=== PATIENT | male | born 1960 | race Caucasian/White ===

== ENCOUNTER 2016-11-18 17:40 | Emergency (ER) | payer OTHER ==
[~2016-11-18 17:40] MED LIST: DILANTIN; UNABLEOBTAIN
[2016-11-18 18:01] LABS: HEMATOCRIT 38.8 % (38.0-50.0); MCH 34.9 PG (29.0-34.0); MCHC 35.1 G/DL (30.0-36.0); MCV 99.5 FL (86-99); MEAN PLAT.VOLUME 10.8 uM^3 (9.0-12.4); PLATELET COUNT 242 K/uL (156-360); RBC DIS.WIDTH-CV 12.5 % (11.8-14.6); RBC DIS.WIDTH-SD 44.4 % (39-53); WHITE BLOOD COUNT 13.7 K/uL (4.1-10.2)
[2016-11-18 18:03] LABS: BASOPHIL COUNT 0.1 K/uL (0-0.1); EOSINOPHIL (%) 1.5 % (0-5); EOSINOPHIL COUNT 0.2 K/uL (0-0.3); IMMATURE GRANULOCYTE (%) 0.3 % (0.0-0.7); IMMATURE GRANULOCYTE COUNT 0.4 K/uL; LYMPHOCYTE COUNT 6.7 K/uL (1.0-2.8); MONOCYTE (%) 7.7 % (3-12); MONOCYTE COUNT 1.1 K/uL (0-0.8); NEUTROPHIL COUNT 5.6 K/uL (1.8-6.4)
[2016-11-18 18:09] LABS: AMYLASE 36 IU/L (1-118); CHLORIDE 105 mEq/L (99-109); POTASSIUM 3.7 mEq/L (3.7-5.4); SODIUM 139 mEq/L (136-147)
[2016-11-18 18:11] LABS: GLUCOSE 94 mg/dL (70-99)
[2016-11-18 18:12] LABS: ANION GAP 12 MEQ/L (2-14)
[2016-11-18 18:14] LABS: SERUM ETHYL ALCOHOL 233 mg/dL
[2016-11-18 18:16] LABS: GFR ESTIMATE (CALCULATED) > 59 mL/min/; UREA NITROGEN (BUN) 14 mg/dL (9-23)
[2016-11-18 18:18] LABS: LIPASE 53 U/L (1.0-51.0)
== END 2016-11-18 19:43 | disposition left against medical advice (07) ==
LOC: TRA 17:40
PROVIDERS: Emergency Medicine
PROC: 0HQ1XZZ Repair Face Skin, External Approach (ICD-10-PCS; principal; 2016-11-18)
PROC: 3E0234Z Introduction of Serum, Toxoid and Vaccine into Muscle, Percutaneous Approach (ICD-10-PCS; 2016-11-18)
DX: S22.31XA Fracture of one rib, right side, initial encounter for closed fracture (principal); S22.32XA Fracture of one rib, left side, initial encounter for closed fracture; S06.0X9A Concussion with loss of consciousness of unspecified duration, initial encounter; S01.81XA Laceration without foreign body of other part of head, initial encounter; S50.311A Abrasion of right elbow, initial encounter; S50.812A Abrasion of left forearm, initial encounter; S80.211A Abrasion, right knee, initial encounter; S80.212A Abrasion, left knee, initial encounter; M25.532 Pain in left wrist; M54.2 Cervicalgia; V13.4XXA Pedal cycle driver injured in collision with car, pick-up truck or van in traffic accident, initial encounter; Y93.55 Activity, bike riding; F10.229 Alcohol dependence with intoxication, unspecified; D72.829 Elevated white blood cell count, unspecified; Y90.8 Blood alcohol level of 240 mg/100 ml or more; F17.210 Nicotine dependence, cigarettes, uncomplicated; Z23 Encounter for immunization
CPT/HCPCS: 70450; 71260; 72125; 72129; 72132; 73100; 74177; 80048; 81003; 82150; 83690; 85025; 86850; 86900; 86901; 99281; 99285; G0480; J0690

== ENCOUNTER 2016-11-25 10:47 | Emergency (ER) | payer OTHER ==
[~2016-11-25] VITALS: Ht 167.6 cm; Wt 71.0 kg
[2016-11-25 10:58] VITALS: BP 140/82
== END 2016-11-25 13:09 | disposition left against medical advice (07) ==
LOC: EXP 10:47 → EME 10:47 → EXP 13:09
DX: S01.81XD Laceration without foreign body of other part of head, subsequent encounter (principal); Z48.02 Encounter for removal of sutures
CPT/HCPCS: 99281; 99283

== ENCOUNTER → 2017-02-26 | Outpatient (CLI) | payer OTHER | END | disposition home or self-care (01) | LOC: NUC 02-18 08:30 | DX: R07.9 Chest pain, unspecified (principal); R06.02 Shortness of breath; I10 Essential (primary) hypertension | CPT/HCPCS: 78452; 93017; A9500; J2785 ==

== ENCOUNTER 2017-07-15 22:16 | Emergency (ER) | payer OTHER ==
[2017-07-15 22:35] LABS: BASOPHIL COUNT 0.1 K/uL (0-0.1); EOSINOPHIL COUNT 0.2 K/uL (0-0.3); HEMATOCRIT 38.5 % (38.0-50.0); IMMATURE GRANULOCYTE (%) 0.2 % (0.0-0.7); INSTRUMENT ABS NEUTROPHIL CT 3.2 K/uL; LYMPHOCYTE COUNT 4.2 K/uL (1.0-2.8); MCH 34.6 PG (29.0-34.0); MCV 101.6 FL (86-99); MONOCYTE (%) 7.7 % (3-12); MONOCYTE COUNT 0.6 K/uL (0-0.8); NEUTROPHIL (%) 38.6 % (45-76); NEUTROPHIL COUNT 3.2 K/uL (1.8-6.4); PLATELET COUNT 195 K/uL (156-360); RBC DIS.WIDTH-CV 13.2 % (11.8-14.6); RBC DIS.WIDTH-SD 49.1 % (39-53); RED BLOOD COUNT 3.79 M/uL (4.00-5.50); WHITE BLOOD COUNT 8.3 K/uL (4.1-10.2)
[2017-07-15 22:49] LABS: AMYLASE 38 IU/L (1-118); CHLORIDE 107 mEq/L (99-109); POTASSIUM 3.6 mEq/L (3.7-5.4); SODIUM 142 mEq/L (136-147)
[2017-07-15 22:50] LABS: GLUCOSE 86 mg/dL (70-99)
[2017-07-15 22:52] LABS: ANION GAP 15 MEQ/L (2-14)
[2017-07-15 22:53] LABS: SERUM ETHYL ALCOHOL 234 mg/dL
[2017-07-15 22:54] LABS: GFR ESTIMATE (CALCULATED) > 59 mL/min/
[2017-07-15 22:55] LABS: UREA NITROGEN (BUN) 10 mg/dL (9-23)
[2017-07-15 22:57] LABS: LIPASE 71 U/L (1.0-51.0)
[2017-07-15 23:31] LABS: ADD MIUA? YES; BILIRUBIN NEGATIVE; BLOOD MODERATE; COLOR STRAW ((YELLOW)); GLUCOSE (STRIP) NEGATIVE; KETONES NEGATIVE; LEUKOCYTES NEGATIVE; NITRITE NEGATIVE; PROTEIN (STRIP) NEGATIVE; SPECIFIC GRAVITY 1.021 (1.000-1.030); UROBILINOGEN 0.2 MG/DL (0.2-1.0)
[2017-07-15 23:34] LABS: BACTERIA NONE SEEN /HPF; EPITHELIAL CELLS RARE /HPF; MUCUS TRACE /LPF; RED BLOOD CELLS 0-5 /HPF (0-5); UCUL ADDED? NO; WHITE BLOOD CELLS 0-5 /HPF (0-5)
[2017-07-15 23:51] LABS: AMPHETAMINE NEGATIVE (500 ng/mL); BARBITURATES NEGATIVE (200 ng/mL); BENZODIAZEPINES NEGATIVE (150 ng/mL); COCAINE NEGATIVE (150 ng/mL); INTERNAL CONTROLS VALID? YES; METHADONE NEGATIVE (200 ng/mL); METHAMPHETAMINE NEGATIVE (500 ng/mL); OPIATES (MORPHINE) NEGATIVE (100 ng/mL); OXYCODONE NEGATIVE (100 ng/mL); PHENCYCLIDINE NEGATIVE (25 ng/mL); PROPOXYPHENE NEGATIVE (300 ng/mL); THC CANNABINOIDS PRESUMPTIVE POSITIVE (50 ng/mL); TRICYCLIC ANTIDEPRESSANTS NEGATIVE (300 ng/mL)
[2017-07-15 23:52] LABS: ADD MEDTOX COMMENT Y
[2017-07-16 00:19] LABS: BASE EXCESS -2.8 mEq/L (-3 to +3); BICARBONATE 23.7 mEq/L (22-26); CARBOXY HGB 5.5 % (0-5); METHEMOGLOBIN 0.8 % (0-1.5); PCO2 47 mm Hg (35-45); PO2 375 mm Hg (80-100); pH 7.31 (7.35-7.45)
[2017-07-16 00:20] LABS: COMMENTS - BLOOD GASES C+; DEVICE VENT; FI02 100 %; MECHANICAL RATE 16 resp/min; MODE ACVC; PEEP 5 CM/H20; SITE RR; TOTAL RESP RATE 16 resp/min
== END 2017-07-16 01:32 | disposition short-term general hospital (02) ==
LOC: TRA 22:16
PROVIDERS: Emergency Medicine
PROC: 0BH17EZ Insertion of Endotracheal Airway into Trachea, Via Natural or Artificial Opening (ICD-10-PCS; principal; 2017-07-15)
DX: S12.000A Unspecified displaced fracture of first cervical vertebra, initial encounter for closed fracture (principal); S12.300A Unspecified displaced fracture of fourth cervical vertebra, initial encounter for closed fracture; S12.400A Unspecified displaced fracture of fifth cervical vertebra, initial encounter for closed fracture; I46.9 Cardiac arrest, cause unspecified; S06.0X9A Concussion with loss of consciousness of unspecified duration, initial encounter; V18.4XXA Pedal cycle driver injured in noncollision transport accident in traffic accident, initial encounter; Y93.55 Activity, bike riding; Y92.828 Other wilderness area as the place of occurrence of the external cause; F10.129 Alcohol abuse with intoxication, unspecified; Y90.7 Blood alcohol level of 200-239 mg/100 ml; J96.00 Acute respiratory failure, unspecified whether with hypoxia or hypercapnia; S01.81XA Laceration without foreign body of other part of head, initial encounter
CPT/HCPCS: 36600; 70450; 70486; 71010; 71260; 72125; 72129; 72132; 74177; 80048; 81003; 82150; 82803; 83690; 84999; 85025; 86850; 86900; 86901; 87070; 87205; 94002; 99281; 99285; G0480; J0461; J2704

== ENCOUNTER → 2017-09-26 | Outpatient (CLI) | payer OTHER | END | disposition home or self-care (01) | LOC: RAD 09-16 11:00 → MRI 09-24 11:00 → RAD 09-24 11:00 → MRI 10:18 | DX: M43.22 Fusion of spine, cervical region (principal); M25.78 Osteophyte, vertebrae; M48.02 Spinal stenosis, cervical region; Z87.81 Personal history of (healed) traumatic fracture | CPT/HCPCS: 72141 ==

== ENCOUNTER 2017-10-07 20:09 | Emergency (ER) | payer OTHER ==
[~2017-10-07] VITALS: Ht 170.2 cm; Wt 66.8 kg
[2017-10-07 20:17] VITALS: BP 171/88
== END 2017-10-07 22:13 | disposition home or self-care (01) ==
LOC: EME 20:09
DX: F10.129 Alcohol abuse with intoxication, unspecified (principal); R56.9 Unspecified convulsions; F17.200 Nicotine dependence, unspecified, uncomplicated
CPT/HCPCS: 99281; 99284

== ENCOUNTER 2017-10-13 10:44 | Emergency (ER) | payer OTHER ==
[~2017-10-13] VITALS: Ht 170.2 cm; Wt 70.0 kg
[2017-10-13 14:25] LABS: BASOPHIL (%) 0.5 % (0-1); EOSINOPHIL (%) 0.9 % (0-5); EOSINOPHIL COUNT 0.1 K/uL (0-0.3); IMMATURE GRANULOCYTE (%) 0.3 % (0.0-0.7); LYMPHOCYTE COUNT 3.5 K/uL (1.0-2.8); MCH 32.6 PG (29.0-34.0); MCV 93.2 FL (86-99); MONOCYTE (%) 7.5 % (3-12); MONOCYTE COUNT 0.7 K/uL (0-0.8); NEUTROPHIL (%) 50.8 % (45-76); NEUTROPHIL COUNT 4.5 K/uL (1.8-6.4); PLATELET COUNT 255 K/uL (156-360); RBC DIS.WIDTH-CV 13.6 % (11.8-14.6); RBC DIS.WIDTH-SD 46.1 % (39-53); RED BLOOD COUNT 4.29 M/uL (4.00-5.50); WHITE BLOOD COUNT 8.8 K/uL (4.1-10.2)
[2017-10-13 14:33] LABS: ALBUMIN 4.2 g/dL (3.2-4.8); CHLORIDE 107 mEq/L (99-109); POTASSIUM 4.3 mEq/L (3.7-5.4); SODIUM 140 mEq/L (136-147)
[2017-10-13 14:36] LABS: GLUCOSE 101 mg/dL (70-99); TOTAL PROTEIN 7.7 g/dL (6.4-8.3)
[2017-10-13 14:38] LABS: TOTAL BILIRUBIN 0.4 mg/dL (0.0-1.0)
[2017-10-13 14:39] LABS: ALKALINE PHOSPHATASE 79 IU/L (3-129); CREATININE 0.7 mg/dL (0.6-1.3); GFR ESTIMATE (CALCULATED) > 59 mL/min/ (58.99-99999)
[2017-10-13 14:40] LABS: UREA NITROGEN (BUN) 8 mg/dL (9-23)
[2017-10-13 14:41] LABS: AST (GOT) 53 IU/L (2-34)
[2017-10-13 14:42] LABS: ALT (GPT) 61 IU/L (3-49)
[2017-10-13 18:24] VITALS: BP 149/81
== END 2017-10-13 18:26 | disposition home or self-care (01) ==
LOC: EME 10:44
PROVIDERS: Physician Assistant
DX: S12.090S Other displaced fracture of first cervical vertebra, sequela (principal); V18.0XXS Pedal cycle driver injured in noncollision transport accident in nontraffic accident, sequela; Z87.891 Personal history of nicotine dependence; F10.10 Alcohol abuse, uncomplicated
CPT/HCPCS: 80053; 85025; 99281; 99284

== ENCOUNTER 2017-10-14 09:08 | Emergency (ER) | payer OTHER ==
[~2017-10-14] VITALS: Ht 170.2 cm; Wt 155.0 kg
[2017-10-14 09:19] VITALS: BP 165/95
== END 2017-10-14 13:05 | disposition left against medical advice (07) ==
LOC: EME 09:08
DX: R52 Pain, unspecified (principal); R26.2 Difficulty in walking, not elsewhere classified; Z53.21 Procedure and treatment not carried out due to patient leaving prior to being seen by health care provider
CPT/HCPCS: 99281

== ENCOUNTER 2018-02-15 18:08 | Emergency (ER) | payer OTHER ==
[~2018-02-15] VITALS: Ht 170.2 cm; Wt 68.6 kg
[2018-02-15 19:12] LABS: HEMOGLOBIN 15.4 G/DL (12.5-16.6); MCH 34.9 PG (29.0-34.0); MCV 99.8 FL (86-99); PLATELET COUNT 213 K/uL (156-360); RED BLOOD COUNT 4.41 M/uL (4.00-5.50); WHITE BLOOD COUNT 10.9 K/uL (4.1-10.2)
[2018-02-15 19:24] LABS: CHLORIDE 105 mEq/L (99-109); POTASSIUM 4.3 mEq/L (3.7-5.4); SODIUM 139 mEq/L (136-147)
[2018-02-15 19:25] LABS: GLUCOSE 93 mg/dL (70-99)
[2018-02-15 19:29] LABS: CREATININE 0.8 mg/dL (0.6-1.3); GFR ESTIMATE (CALCULATED) > 59 mL/min/ (58.99-99999)
[2018-02-15 19:30] LABS: UREA NITROGEN (BUN) 10 mg/dL (9-23)
[2018-02-15 20:04] VITALS: BP 135/90
== END 2018-02-15 20:16 | disposition home or self-care (01) ==
LOC: EME 18:08
PROVIDERS: Nurse Practitioner Family
DX: S00.91XA Abrasion of unspecified part of head, initial encounter (principal); W18.30XA Fall on same level, unspecified, initial encounter; Y92.410 Unspecified street and highway as the place of occurrence of the external cause; Z87.820 Personal history of traumatic brain injury; G40.909 Epilepsy, unspecified, not intractable, without status epilepticus; Z87.891 Personal history of nicotine dependence
CPT/HCPCS: 70450; 80048; 85027; 99281; 99284